=== PATIENT | male | born 1995 | race Caucasian/White ===

== ENCOUNTER 2022-10-09 19:48 | Emergency (ER) | payer OTHER ==
[2022-10-09 20:00] VITALS: BP 122/67; PULSE 83; RESP 18; TEMP 98.4; BMI 25.7
[2022-10-09] MEDS ORDERED: MAG HYDROX/AL HYDROX/SIMETH -MYLANTA- ORAL SUSPENSION PO ONE (20:57)
[2022-10-09] MEDS ORDERED: FAMOTIDINE 20 MG TABLET PO ONE (20:57)
[2022-10-09] MEDS ORDERED: FAMOTIDINE 20 MG TABLET ONE (21:13)
[2022-10-09] MEDS ORDERED: MAG HYDROX/AL HYDROX/SIMETH 30 ML UNIT-DOSE CUP ONE (21:13)
== END 2022-10-09 22:49 | disposition home or self-care (01) ==
LOC: JER 19:48
DX: R07.2 Precordial pain (principal); R06.02 Shortness of breath; R10.13 Epigastric pain
CPT/HCPCS: 71046-TC-FY; 93005; 93010; 99284-25